=== PATIENT | female | born 1950 | race Caucasian/White ===

== ENCOUNTER → 2021-05-21 09:53 | Outpatient (CLI) | payer OTHER, SELFPAY ==
[2021-05-21 12:31] LABS: COVID19 -Nasal RAPID Negative (Negative)
== END ==
PROVIDERS: PCP Family Medicine; Visit Provider Physical Medicine & Rehabilitation
DX: Z20.822 Contact with and (suspected) exposure to COVID-19 (principal)
CPT/HCPCS: 87635; C9803

== ENCOUNTER 2021-05-24 09:38 | Outpatient (CLI) | payer OTHER, SELFPAY ==
[2021-05-24] VITALS (8 sets, daily range): BP systolic 124–141; BP diastolic 73–88; PULSE 65–78; RESP 11–20; TEMP 36.4; O2SAT 96–100
--- NOTE | 2021-05-24 09:39 | DI.RAD.S_ITS ---
PROCEDURE: PAIN L/S FACET INJ/BLK [facility] COMPARISON: Outside Facility, RG, XR L-SPINE 4-6V, 01/22/2021, 10:51. Outside Facility, RG, MRI L-SPINE W/O CONTRAST, 03/10/2021, 11:50. INDICATIONS: Bilateral L3-4 facet joint injection FINDINGS: Fluoroscopic spot filming was performed to verify placement of spinal needles on both sides. Appropriate location of the needle tips was confirmed by injection of iodinated contrast. By history, the needles are at the L3-L4 level. However, this differs by 1 level from the lumbar spine numbering scheme established on the outside reports. IMPRESSION: Intraprocedural examination within normal limits. Dictated by: Ian Ho M.D. on 05/24/2021 at 11:18 Approved by: Ian Ho M.D. on 05/24/2021 at 11:20
[2021-05-24] MEDS: MIDAZOLAM 5 MG/5 ML VIAL IV (11:19)
[2021-05-24] MEDS: fentaNYL 100 MCG/2 ML INJ 50 MCG IV (11:19)
[2021-05-24] MEDS: IOPAMIDOL 15 ML VIAL 3 ML INJ (11:23)
[2021-05-24] MEDS: BETAMETHASONE 30 MG/5 ML MDV 12 MG INJ (11:23)
[2021-05-24] MEDS: BUPIVACAINE 0.5% (PF) VIAL 5 ML INJ (11:23)
--- NOTE | 2021-05-24 11:29 | P.PCN_ITS ---
Date/Time/Diagnoses Date of procedure: 05/24/21 Time of procedure: 11:37 Pre-procedure diagnosis: 1. FACET ARTHROPATHY 2. AXIAL LBP 3. MULTILEVEL DDD Post-procedure diagnosis: same Procedure Notes Procedure: 1. FLUORSCOPICALLY GUIDED CONTRAST CONTROLLED FACET JOINT INJECTIONS BILATERAL L3/4 Indications: Chang Beard is referred by Dr. Martinez for treatment of Axial LBP Physician: Dillon Sandoval Total Fluoroscopy time (seconds): 10 Total sedation minutes: 7 Complications: none Procedure in detail & Post-procedure care: FINDINGS Multilevel Facet Arthropathy with Clinically significant axial LBP DESCRIPTION OF PROCEDURE Fluoroscopically guided, contrast-controlled bilateral L3/4, L4/5 facet joint injections. Following review of allergy and review of potential side effects and complications, including, but not necessarily limited to, infection, allergic reaction, local tissue breakdown, stroke, temporary or permanent nerve injury, paralysis, and possible , the patient indicated that the patient understood and agreed to proceed. An informed consent document was signed by the patient, witnessed by a nurse, and placed in the patient's chart. Additionally, other treatment options including medications, modalities, and physical therapy were reviewed with the patient. After review of previous anaesthesic history and IV conscious sedation the patient was deemed safe to proceed with today's procedure with IV conscious sedation as ASA class II designation. Safety time-out was performed to confirm patient ID, procedure to be performed and site of procedure. IV sedation was accomplished with a combination of 2mg of Versed and 50mcg of Fentanyl was administered by the RN after DO order, titrated to patient comfort during the course of the procedure while the patient remained responsive to all verbal commands. In the prone position, following sterile prep and drape of the lumbar region, the posterior aspect of the L3/4 facet joints were identified fluoroscopically. The skin was anesthetized via a 25-gauge 1.5-inch needle with 1% lidocaine solution into the corresponding facet joints. At this point, a 22-gauge 3.5- inch spinal needle was atraumatically introduced and advanced under fluoroscopic guidance into the corresponding facet joints. Following negative aspiration, injections of approximately 0.2cc of Isovue 200 confirmed interarticular placem ent without vascular uptake. The identical procedure was then performed at the L3/4 facet joints on the left. Radiological data, including multiple fluoroscopic views of the lumbosacral spine, reveal a spinal needle at the L3/4 facet joints bilaterally. Subsequent views show flow of contrast material both superiorly and inferiorly within the joint space without vascular or intrathecal uptake. At this point, a total of 0.5cc including a mixture of 0.25cc Marcaine and 0.25cc betamethasone was injected without complication into each of the corresponding facet joints. The patient tolerated the procedure well without signs or symptoms of complications prior to transfer to the recovery area continued monitoring without incident. The patient was then transferred to the recovery area where they were observed for an appropriate period of time after the injection. The patient reported a VAS score of 7 prior to the procedure and a post-procedure VAS of 0. POST OP INSTRUCTIONS The patient was provided a Pain Log to continue to record their response to the target-specific procedure prior to follow-up visit with their referring physician. Additionally, specific post-injection care instructions and a contact number to our office were provided if concerns arise regarding possible complications associated with the procedure are suspected.
== END 2021-05-24 11:57 | disposition home or self-care (01) ==
PROVIDERS: PCP Family Medicine; Referring Provider Physical Medicine & Rehabilitation; Visit Provider Physical Medicine & Rehabilitation
DX: M47.816 Spondylosis without myelopathy or radiculopathy, lumbar region (principal); M51.36 Other intervertebral disc degeneration, lumbar region; M54.5 Low back pain
CPT/HCPCS: 64493; 64494; J0702; J2250; J3010

== ENCOUNTER 2021-09-06 09:09 | Outpatient (CLI) | payer OTHER, SELFPAY ==
[2021-09-06] VITALS (8 sets, daily range): BP systolic 104–162; BP diastolic 58–95; PULSE 68–83; RESP 12–20; TEMP 36.6; O2SAT 92–99
--- NOTE | 2021-09-06 09:12 | DI.RAD.S_ITS ---
PROCEDURE: PAIN L/S FACET INJ/BLK [facility] COMPARISON: [facility], , PAIN L/S FACET INJ/BLK [facility], 05/24/2021, 11:20. INDICATIONS: SPONDYLOSIS FINDINGS: Fluoroscopic spot filming was performed to verify placement of spinal needles on both sides at the L3, L4, and L5 levels, as labeled on the films. Appropriate location of the needle tips was confirmed by injection of iodinated contrast. IMPRESSION: Intraprocedural examination within normal limits. Dictated by: Ian Ho M.D. on 09/06/2021 at 11:18 Approved by: Ian Ho M.D. on 09/06/2021 at 11:19
[2021-09-06] MEDS: fentaNYL 100 MCG/2 ML INJ 50 MCG IV (11:25)
[2021-09-06] MEDS: MIDAZOLAM 5 MG/5 ML VIAL IV ×2 (11:25)
[2021-09-06] MEDS: fentaNYL 100 MCG/2 ML INJ (11:25)
[2021-09-06] MEDS: BUPIVACAINE 0.5% (PF) VIAL 5 ML INJ (11:30)
[2021-09-06] MEDS: LIDOCAINE 1% 20 ML 10 ML INJ (11:30)
[2021-09-06] MEDS: IOPAMIDOL 15 ML VIAL 3 ML INJ (11:31)
[2021-09-06] MEDS: BUPIVACAINE 0.5% (PF) VIAL 30 ML (11:40)
[2021-09-06] MEDS: IOPAMIDOL 15 ML VIAL INJ (11:40)
[2021-09-06] MEDS: LIDOCAINE 1% 20 ML (11:40)
--- NOTE | 2021-09-06 11:48 | P.PCN_ITS ---
Date/Time/Diagnoses Date of procedure: 09/06/21 Time of procedure: 11:48 Pre-procedure diagnosis: 1. FACET ARTHROPATHY Post-procedure diagnosis: same Procedure Notes Procedure: 1. BILATERAL L3, L4 AND L5 DIAGNOSTIC MB BLOCKS Indications: Kisha is referred by Dr. Martinez for treatment of Bilateral Axial LBP. Physician: Dillon Sandoval Total Fluoroscopy time (seconds): 12 Total sedation minutes: 15 Complications: none Procedure in detail & Post-procedure care: DESCRIPTION OF PROCEDURE Fluoroscopically guided, contrast-controlled bilateral L3, L4 AND L5 medial branch blocks with 0.5cc of 0.5% Marcaine. Following review of allergy and review of potential side effects and complications, including, but not necessarily limited to, infection, allergic reaction, local tissue breakdown, nerve injury, paralysis, stroke and possible , the patient indicated that the patient understood and agreed to proceed. An informed consent document was signed by the patient, witnessed by a nurse, and placed in the patient's chart. After review of previous anaesthesic history and IV conscious sedation the patient was deemed safe to proceed with today's procedure with IV conscious sedation as ASA class II designation. Safety time-out was performed to confirm patient ID, procedure to be performed and site of procedure. IV sedation was accomplished with a combination of 2mg of Versed and 50mcg of Fentantyl was administered by the RN after DO order, titrated to patient comfort during the course of the procedure while the patient remained responsive to all verbal commands In the prone position, following sterile prep and drape of the lumbar region, the right L3, L4 AND L5 anatomical location of the medial branch of the dorsal ramus was identified fluoroscopically. Subsequently an anesthetic skin wheal using 1% lidocaine solution was initiated at each of the anatomical spots. Subsequently then a 22-gauge 3.5-inch spinal needle was atraumatically introduced and advanced under fluoroscopic guidance at each of the corresponding sites at the right L3, L4 and L5 MB. After negative aspiration, 0.2cc of Isovue 200 was injected, confirming placement without vascular or intrathecal uptake. Subsequently then 0.5cc of 0.5% Marcaine solution was injected at each of the corresponding sites at the right L3, L4 and L5 medial branch locations. The identical procedure was replicated on the left. The patient tolerated the procedure well without signs or symptoms of complications. The patient tolerated the procedure well without signs or symptoms of complications prior to transfer to the recovery area continued monitoring without incident. Post-procedure, the patient was monitored initiating provocative activities to measure the amount of relief from block of the facetogenic pain. The patient reported a VAS of 7 prior to the procedure and a post-procedure VAS of 1. It has been a pleasure to assist in the diagnostic and therapeutic care of your patient. POST OP INSTRUCTIONS The patient was provided with a Pain Log to complete over the next several hours and subsequent days prior to the patient's follow up with the ordering physician. 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 The patient is aware, was provided, once again, with a Pain Log and will follow up with the referring physician for review and clinical correlation
== END 2021-09-06 12:07 | disposition home or self-care (01) ==
PROVIDERS: PCP Family Medicine; Referring Provider Physical Medicine & Rehabilitation; Visit Provider Physical Medicine & Rehabilitation
DX: M47.816 Spondylosis without myelopathy or radiculopathy, lumbar region (principal)
CPT/HCPCS: 64493; 64494; 99152; J2250; J3010

== ENCOUNTER 2021-12-06 09:55 | Outpatient (CLI) | payer OTHER, SELFPAY ==
[2021-12-06] VITALS (8 sets, daily range): BP systolic 127–146; BP diastolic 68–98; PULSE 62–89; RESP 11–60; TEMP 35.6; O2SAT 14–100
--- NOTE | 2021-12-06 09:57 | DI.RAD.S_ITS ---
PROCEDURE: PAIN L/S FACET INJ/BLK [facility] COMPARISON: [facility], , PAIN L/S FACET INJ/BLK [facility], 09/06/2021, 12:31. INDICATIONS: SPONDYLOSIS FINDINGS: Fluoroscopic spot filming was performed to verify placement of spinal needles on both sides at the L3, L4, and L5 levels, as labeled on the films. Appropriate location of the needle tips was confirmed by injection of iodinated contrast. IMPRESSION: Intraprocedural examination demonstrating appropriate positions of the needles. Dictated by: Ian Ho M.D. on 12/06/2021 at 12:00 Approved by: Ian Ho M.D. on 12/06/2021 at 12:01
[2021-12-06] MEDS: MIDAZOLAM 2 MG/2 ML VIAL IV (11:43)
[2021-12-06] MEDS: BUPIVACAINE 0.5% (PF) VIAL 5 ML INJ (11:46)
[2021-12-06] MEDS: IOPAMIDOL 15 ML VIAL 3 ML INJ (11:46)
[2021-12-06] MEDS: LIDOCAINE 1% 20 ML (11:47)
[2021-12-06] MEDS: fentaNYL 100 MCG/2 ML INJ (11:49)
--- NOTE | 2021-12-06 12:00 | PM.PROC.IR.1 ---
Date/Time/Diagnoses Date of procedure: 12/06/21 Time of procedure: 12:00 Pre-procedure diagnosis: 1. FACET ARTHROPATHY Post-procedure diagnosis: same Procedure Notes Procedure: 1. BILATERAL L3, L4 AND L5 DIAGNOSTIC MB BLOCKS - Indications: Nubia Beard is referred by Dr. Martinez for treatment of Bilateral Axial LBP. Physician: Dillon Sandoval Total Fluoroscopy time (seconds): 9 Total sedation minutes: 13 Complications: none Procedure in detail & Post-procedure care: DESCRIPTION OF PROCEDURE Fluoroscopically guided, contrast-controlled bilateral L3, L4 AND L5 medial branch blocks with 0.5cc of 2% Lidocaine. Following review of allergy and review of potential side effects and complications, including, but not necessarily limited to, infection, allergic reaction, local tissue breakdown, nerve injury, paralysis, stroke and possible , the patient indicated that the patient understood and agreed to proceed. An informed consent document was signed by the patient, witnessed by a nurse, and placed in the patient's chart. After review of previous anaesthesic history and IV conscious sedation the patient was deemed safe to proceed with today's procedure with IV conscious sedation as ASA class II designation. Safety time-out was performed to confirm patient ID, procedure to be performed and site of procedure. IV sedation was accomplished with a combination of 2mg of Versed and 50mcg of Fentantyl was administered by the RN after DO order, titrated to patient comfort during the course of the procedure while the patient remained responsive to all verbal commands In the prone position, following sterile prep and drape of the lumbar region, the right L3, L4 AND L5 anatomical location of the medial branch of the dorsal ramus was identified fluoroscopically. Subsequently an anesthetic skin wheal using 1% lidocaine solution was initiated at each of the anatomical spots. Subsequently then a 22-gauge 3.5-inch spinal needle was atraumatically introduced and advanced under fluoroscopic guidance at each of the corresponding sites at the right L3, L4 and L5 MB. After negative aspiration, 0.2cc of Isovue 200 was injected, confirming placement without vascular or intrathecal uptake. Subsequently then 0.5cc of 2% Lidocaine solution was injected at each of the corresponding sites at the right L3, L4 and L5 medial branch locations. The identical procedure was replicated on the left. The patient tolerated the procedure well without signs or symptoms of complications. The patient tolerated the procedure well without signs or symptoms of complications prior to transfer to the recovery area continued monitoring without incident. Post-procedure, the patient was monitored initiating provocative activities to measure the amount of relief from block of the facetogenic pain. The patient reported a VAS of 7 prior to the procedure and a post-procedure VAS of 1. It has been a pleasure to assist in the diagnostic and therapeutic care of your patient. POST OP INSTRUCTIONS The patient was provided with a Pain Log to complete over the next several hours and subsequent days prior to the patient's follow up with the ordering physician. 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 The patient is aware, was provided, once again, with a Pain Log and will follow up with the referring physician for review and clinical correlation
== END 2021-12-06 12:16 | disposition home or self-care (01) ==
PROVIDERS: PCP Family Medicine; Referring Provider Physical Medicine & Rehabilitation; Visit Provider Physical Medicine & Rehabilitation
DX: M47.816 Spondylosis without myelopathy or radiculopathy, lumbar region (principal)
CPT/HCPCS: 64493; 64494; 99152; J2250; J3010

== ENCOUNTER → 2022-04-15 13:09 | Outpatient (CLI) | payer OTHER, SELFPAY ==
[2022-04-15 14:22] LABS: COVID19 -Nasal RAPID Negative (Negative)
== END ==
PROVIDERS: PCP Family Medicine; Visit Provider Physical Medicine & Rehabilitation
DX: Z20.822 Contact with and (suspected) exposure to COVID-19 (principal)
CPT/HCPCS: 87635; C9803

== ENCOUNTER 2022-04-16 07:31 | Outpatient (CLI) | payer OTHER, SELFPAY ==
[2022-04-16] VITALS (13 sets, daily range): BP systolic 131–164; BP diastolic 84–106; PULSE 66–73; RESP 12–20; TEMP 36.2; O2SAT 95–100
--- NOTE | 2022-04-16 07:33 | DI.RAD.S_ITS ---
PROCEDURE: PAIN L/S MED/LAT N RFA BILAT INDICATIONS: SPONDYLOSIS COMPARISON: [facility], , PAIN L/S FACET INJ/BLK [facility], 12/06/2021, 11:47. FINDINGS: Fluoroscopic spot filming was performed to verify placement of spinal needles on both sides at the L3 and L4 levels, as labeled on the films. IMPRESSION: Images during rhizotomy within normal limits. Dictated by: Ian Ho M.D. on 04/16/2022 at 13:24 Approved by: Ian Ho M.D. on 04/16/2022 at 13:25
[2022-04-16] MEDS: MIDAZOLAM 2 MG/2 ML VIAL IV ×2 (08:30→08:45)
[2022-04-16] MEDS: BUPIVACAINE 0.5% (PF) VIAL 5 ML INJ (08:35)
[2022-04-16] MEDS: LIDOCAINE 1% 20 ML INJ (08:36)
--- NOTE | 2022-04-16 09:10 | P.PCN_ITS ---
Date/Time/Diagnoses Date of procedure: 04/16/22 Time of procedure: 09:10 Pre-procedure diagnosis: 1. RECALCITRANT FACET ARTHROPATHY Post-procedure diagnosis: same Procedure Notes Procedure: 1. BILATERAL L3, L4 MEDIAL BRANCH RADIOFREQUENCY NEUROTOMY Indications: Kisha is referred by Dr. Martinez for treatment of facet arthropathy. Physician: Dillon Sandoval Total Fluoroscopy time (seconds): 22 Total sedation minutes: 36 Complications: none Procedure in detail & Post-procedure care: DESCRIPTION OF PROCEDURE Bilateral L3, L4 medial branch radiofrequency neurotomy The patient is well known to this clinic having undergone previous facet injections with good but temporary relief. The patient has experienced appropriate, concordant relief with previous facet and median branch blocks but the patient's pain has been recalcitrant to further conservative measures. Therefore, based upon the patient's relief and persistent symptoms, the patient is considered an appropriate candidate for facet rhizotomy. All of the patient's questions regarding the risks versus benefits of the procedure, including, but not limited to, bleeding, infection, temporary as well as lasting nerve injury, paralysis, stroke, and , as well treatment alternatives were answered to satisfaction. After obtaining informed consent, denial of pertinent drug allergies, as well as being made aware of the potential risks of bleeding, infection, spinal cord trauma, paralysis, temporary and permanent nerve damage, seizure, stroke, and possible , the patient was brought to the fluoroscopy suite and positioned prone on the fluoroscopy table. The lumbar region was prepped with Betadine and covered with a fenestrated drape in the usual sterile fashion. Appropriate monitors applied including pulse oximeter, pulse, and blood pressure for regular monitoring throughout the procedure. After review of previous anaesthesic history and IV conscious sedation the patient was deemed safe to proceed with today's procedure with IV conscious sedation as ASA class II designation. Safety time-out was performed to confirm patient ID, procedure to be performed and site of procedure. IV sedation was accomplished with a combination of 3mg of Versed administered by the RN after DO order, titrated to patient comfort during the course of the procedure while the patient remained responsive to all verbal commands. After local infiltration using 1% lidocaine, under fluoroscopic guidance, a 10- cm RF insulated needle with a 10-mm active tip was positioned parallel to the junction of the right the superior articulating process where the L4 medial branch resides. Needle placement was confirmed with motor stimulation of .5v on the right which produced local stimulation without radicular component. The stimulation was then increased to 2v with, once again, only local multifidus stimulation without radicular component. The needle was then removed and the identical procedure was performed along the length of the right L3 medial branch with motor stimulation at .7v on the right. The medial branches were then anesthetised with 0.5% marcaine. This was then followed by two discreet lesions performed at 80 degrees Celsius for 90 seconds each. The identical procedures were repeated on the left. The patient tolerated the procedure well without signs or symptoms of complications prior to transfer to the recovery area continued monitoring without incident. The patient was then transferred to the recovery area where they were observed for an appropriate period of time after the injection. The patient reported a VAS score of 9 prior to the procedure and a post-procedure VAS of 0. POST OP INSTRUCTIONS The patient was provided a Pain Log to continue to record the patient's response to the target-specific procedure prior to the patient's follow-up visit with the referring physician. Additionally, specific post-injection care instructions and a contact number to our office were provided if concerns arise regarding possible complications associated with the procedure are suspected.
== END 2022-04-16 09:35 | disposition home or self-care (01) ==
LOC: RAD 07:32
PROVIDERS: PCP Family Medicine; Referring Provider Physical Medicine & Rehabilitation; Visit Provider Physical Medicine & Rehabilitation
DX: M47.816 Spondylosis without myelopathy or radiculopathy, lumbar region (principal)
CPT/HCPCS: 64635; 99152; 99153; J2250

== ENCOUNTER 2022-08-06 09:11 | Outpatient (CLI) | payer OTHER, SELFPAY ==
[2022-08-06] VITALS (9 sets, daily range): BP systolic 132–144; BP diastolic 77–92; PULSE 65–72; RESP 12–20; TEMP 36.4; O2SAT 97–100
--- NOTE | 2022-08-06 09:12 | DI.RAD.S_ITS ---
PROCEDURE: PAIN L/S FACET INJ/BLK [facility] COMPARISON: [facility], XA, PAIN L/S FACET INJ/BLK [facility], 12/06/2021, 11:47. [facility], XA, PAIN L/S MED/LAT N RFA BILAT, 04/16/2022, 8:35. INDICATIONS: SPONDYLOSIS FINDINGS: Fluoroscopic spot filming was performed to verify placement of spinal needles on both sides at the L5 and S1 levels, as labeled on the films. Appropriate location of the needle tips was confirmed by injection of iodinated contrast. IMPRESSION: Intraprocedural examination demonstrating appropriate positions of the needles. Dictated by: Ian Ho M.D. on 08/06/2022 at 14:01 Approved by: Ian Ho M.D. on 08/06/2022 at 14:02
[2022-08-06] MEDS: MIDAZOLAM 2 MG/2 ML VIAL IV (10:43)
[2022-08-06] MEDS: IOPAMIDOL 15 ML VIAL 3 ML INJ (10:48)
[2022-08-06] MEDS: LIDOCAINE 1% (PF) 5 ML INJ (10:48)
[2022-08-06] MEDS: BUPIVACAINE 0.5% MDV 1 ML INJ (10:48)
--- NOTE | 2022-08-06 10:59 | P.PCN_ITS ---
Date/Time/Diagnoses Date of procedure: 08/06/22 Time of procedure: 10:59 Pre-procedure diagnosis: 1. FACET ARTHROPATHY Post-procedure diagnosis: same Procedure Notes Procedure: 1. BILATERAL- L5 and S1 MB BLOCKS Indications: Kisha is referred by Dr. Martinez for treatment of Bilateral Axial LBP. Physician: Dillon Sandoval Total Fluoroscopy time (seconds): 9 Total sedation minutes: 12 Complications: none Procedure in detail & Post-procedure care: DESCRIPTION OF PROCEDURE Fluoroscopically guided, contrast-controlled bilateral L5 and S1 medial branch blocks with 0.5cc of 0.5% Marcaine. Following review of allergy and review of potential side effects and complications, including, but not necessarily limited to, infection, allergic reaction, local tissue breakdown, nerve injury, paralysis, stroke and possible , the patient indicated that the patient understood and agreed to proceed. An informed consent document was signed by the patient, witnessed by a nurse, and placed in the patient's chart. After review of previous anaesthesic history and IV conscious sedation the patient was deemed safe to proceed with today?s procedure with IV conscious sedation as ASA class II designation. Safety time-out was performed to confirm patient ID, procedure to be performed and site of procedure. IV sedation was accomplished with a combination of 2mg of Versed was administered by the RN after DO order, titrated to patient comfort during the course of the procedure while the patient remained responsive to all verbal commands In the prone position, following sterile prep and drape of the lumbar region, the right L5 and S1 anatomical location of the medial branch of the dorsal ramus was identified fluoroscopically. Subsequently an anesthetic skin wheal using 1% lidocaine solution was initiated at each of the anatomical spots. Subsequently then a 22-gauge 3.5-inch spinal needle was atraumatically introduced and advanced under fluoroscopic guidance at each of the corresponding sites at the right L5 and S1 MB. After negative aspiration, 0.2 cc of Isovue 200 was injected, confirming placement without vascular or intrathecal uptake. Subsequently then 0.5 cc of 0.5% Marcaine solution was injected at each of the corresponding sites at the right L5 and S1 medial branch locations. The identical procedure was replicated on the left. The patient tolerated the procedure well without signs or symptoms of complications. The patient tolerated the procedure well without signs or symptoms of complications prior to transfer to the recovery area continued monitoring without incident. Post-procedure, the patient was monitored initiating provocative activities to measure the amount of relief from block of the facetogenic pain. The patient reported a VAS of 7 prior to the procedure and a post-procedure VAS of 1. It has been a pleasure to assist in the diagnostic and therapeutic care of your patient. POST OP INSTRUCTIONS The patient was provided with a Pain Log to complete over the next several hours and subsequent days prior to the patient's follow up with the ordering physician. 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 The patient is aware, was provided, once again, with a Pain Log and will follow up with the referring physician for review and clinical correlation.
== END 2022-08-06 11:28 | disposition home or self-care (01) ==
PROVIDERS: PCP Family Medicine; Referring Provider Physical Medicine & Rehabilitation; Visit Provider Physical Medicine & Rehabilitation
DX: M47.816 Spondylosis without myelopathy or radiculopathy, lumbar region (principal); M47.817 Spondylosis without myelopathy or radiculopathy, lumbosacral region
CPT/HCPCS: 64493; 99152; J2250